=== PATIENT | male | born 1980 | race Caucasian/White ===

== ENCOUNTER 2021-04-12 13:13 | Inpatient (IN) | payer OTHER ==
[~2021-04-12] VITALS: Ht 167.6 cm; Wt 116.6 kg
[2021-04-12 13:36] VITALS: BP 155/110
--- NOTE | 2021-04-12 16:27 | NUR ---
PT TRANFERRED FROM ER WAITING ROOM TO ER RM 5 AT 1630 INTRODUCED SELF TO PT AT THAT TIME
[2021-04-12 17:16] LABS: ABSOLUTE MONOCYTES 0.6 thou/uL (0.0-1.2); ABSOLUTE NEUTROPHILS 3.5 thou/uL (1.6-8.1); BASOPHILS 0.4 %; EOSINOPHILS 0.1 %; HEMATOCRIT 44.2 % (42.0-52.0); HEMOGLOBIN 15.5 gm/dL (14.0-18.0); LYMPHOCYTES 19.6 %; MCH 31.6 pg (26.0-34.0); MCV 90.3 fL (80.0-100.0); MONOCYTES 12.2 %; MPV 8.4 fl. (7.2-11.1); NUCLEATED RBCS 0 /100WBC; PLATELET COUNT* 163 thou/uL (150-400); POLYS 67.7 %; RBC 4.89 mil/uL (4.50-6.00); RDW-CV 12.3 % (10.5-14.5); WBC 5.2 thou/uL (4.0-11.0)
[2021-04-12 17:25] LABS: CALCIUM 8.6 mg/dL (8.5-10.1); POTASSIUM 3.6 mmol/L (3.5-5.1)
[2021-04-12 17:29] LABS: APTT 31.6 Seconds (25.0-31.3); INR 1.1; PROTIME 11.2 Seconds (9.20-11.50)
[2021-04-12 17:30] LABS: ALBUMIN 3.6 g/dL (3.4-5.0); TOTAL BILIRUBIN 0.7 mg/dL (<0.1-1.0); TOTAL PROTEIN 7.9 g/dL (6.4-8.2)
[2021-04-12 23:00] VITALS: BP 122/79
[2021-04-13 03:32] VITALS: BP 111/74
[2021-04-13 03:53] LABS: ABSOLUTE MONOCYTES 0.6 thou/uL (0.0-1.2); ABSOLUTE NEUTROPHILS 2.1 thou/uL (1.6-8.1); BASOPHILS 0.3 %; LYMPHOCYTES 27.7 %; MCH 30.9 pg (26.0-34.0); MCHC 34.1 g/dL (28.0-37.0); MCV 90.6 fL (80.0-100.0); MONOCYTES 15.5 %; MPV 8.4 fl. (7.2-11.1); NUCLEATED RBCS 0 /100WBC; PLATELET COUNT* 159 thou/uL (150-400); POLYS 56.5 %; RBC 4.53 mil/uL (4.50-6.00); RDW-CV 12.2 % (10.5-14.5); WBC 3.6 thou/uL (4.0-11.0)
[2021-04-13 04:03] LABS: CALCIUM 8.2 mg/dL (8.5-10.1)
[2021-04-13 04:05] LABS: POTASSIUM 4.6 mmol/L (3.5-5.1)
[2021-04-13 07:32] VITALS: BP 115/74
[2021-04-13 12:04] VITALS: BP 136/81
[2021-04-13 15:27] VITALS: BP 196/109
[2021-04-13 16:00] VITALS: BP 133/85
--- NOTE | 2021-04-13 17:00 | NUR ---
PATIENT ARRIVED FROM ER. PATIENT SETTLED TO ROOM. HISTORY, ASSESSMENT AND VITALS COMPLETED AND DOCUMENTED. PATIENT IS ON 2L/NC. PATIENT IS UP AD SLIM. PATIENT DENIES ANY PAIN. PATIENT DENIES ANY NEEDS AT THIS TIME. CALL LIGHT WITHIN REACH.
[2021-04-13 20:00] VITALS: BP 106/78
[2021-04-14] VITALS (7 sets, daily range): BP systolic 119–155; BP diastolic 69–100
[2021-04-14 04:40] LABS: ABSOLUTE LYMPHOCYTES 1.4 thou/uL (0.8-5.3); ABSOLUTE MONOCYTES 0.8 thou/uL (0.0-1.2); ABSOLUTE NEUTROPHILS 3.5 thou/uL (1.6-8.1); BASOPHILS 0.1 %; EOSINOPHILS 0.1 %; HEMATOCRIT 37.5 % (42.0-52.0); HEMOGLOBIN 13.2 gm/dL (14.0-18.0); MCH 31.8 pg (26.0-34.0); MCHC 35.3 g/dL (28.0-37.0); MCV 90.2 fL (80.0-100.0); MONOCYTES 13.8 %; MPV 8.6 fl. (7.2-11.1); NUCLEATED RBCS 0 /100WBC; PLATELET COUNT* 182 thou/uL (150-400); RBC 4.16 mil/uL (4.50-6.00); WBC 5.7 thou/uL (4.0-11.0)
[2021-04-14 05:11] LABS: CREATININE 0.9 mg/dL (0.6-1.3); POTASSIUM 3.6 mmol/L (3.5-5.1); TOTAL BILIRUBIN 0.4 mg/dL (<0.1-1.0); TOTAL PROTEIN 6.6 g/dL (6.4-8.2)
--- NOTE | 2021-04-14 13:33 | NUR ---
Nutrition: Pt admitted to COVID unit with possible COVID. 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 Assessed for high BMI. Wt: 257#. Regular diet. No intake records. RD cannot visit with pt 1:1 d/t COVID restrictions. Meds: steroids, remdesivir, ABX. Consider low risk. Please record meal intake %. Supplements available if meal intake <50%.
--- NOTE | 2021-04-14 15:24 | NUR ---
Covid positive. Spoke with via phone. Pt independent. No DME. No hx of HH or SNF. Goal is home at dc. On 2L. Cxr not good. Plan to watch pt for a few more days, Pt is high risk to decline.
--- NOTE | 2021-04-14 18:48 | NUR ---
PATIENT RESTING IN BED. PATIENT IS UP AD SLIM IN ROOM. PATIENT DENIES ANY PAIN. PATIENT HAS OXYGEN ON AT 2L/NC WITH O2 SATS IN MID 90'S. PATIENT RECEIVING 1 UNIT OF CONVALESCENT PLASMA THIS EVENING. PATIENT HAS GOOD APPETITE. PATIENT DENIES ANY NEEDS AT THIS TIME. CALL LIGHT WITHIN REACH.
[2021-04-15] VITALS: BP 118/75
[2021-04-15 04:00] VITALS: BP 107/74
[2021-04-15 04:54] LABS: ABSOLUTE LYMPHOCYTES 1.5 thou/uL (0.8-5.3); ABSOLUTE MONOCYTES 0.8 thou/uL (0.0-1.2); ABSOLUTE NEUTROPHILS 4.6 thou/uL (1.6-8.1); BASOPHILS 0.1 %; EOSINOPHILS 0.2 %; HEMATOCRIT 40.9 % (42.0-52.0); HEMOGLOBIN 13.9 gm/dL (14.0-18.0); LYMPHOCYTES 22.2 %; MCV 91.2 fL (80.0-100.0); MONOCYTES 11.7 %; MPV 8.3 fl. (7.2-11.1); NUCLEATED RBCS 0 /100WBC; PLATELET COUNT* 229 thou/uL (150-400); POLYS 65.8 %; RBC 4.48 mil/uL (4.50-6.00); RDW-CV 12.3 % (10.5-14.5); WBC 6.9 thou/uL (4.0-11.0)
--- NOTE | 2021-04-15 05:00 | NUR ---
ASSUMED CARE OF PT AT 1900. PT IS ALERT AND ORIENTED. VSS. PERRLA. NO COMPLAINTS OF PAIN. PT IS ON 2 LITERS. PT IS IN SINUS RYTHM ON THE TELEMETRY. PT IS RESTING COMFORTABLY IN BED. RESPIRATIONS ARE EVEN AND NONLABORED. WILL CONTINUE TO MONITOR PT.
[2021-04-15 05:22] LABS: ALBUMIN 3.3 g/dL (3.4-5.0); CALCIUM 8.2 mg/dL (8.5-10.1); CREATININE 0.9 mg/dL (0.6-1.3); POTASSIUM 3.3 mmol/L (3.5-5.1); TOTAL BILIRUBIN 0.4 mg/dL (<0.1-1.0); TOTAL PROTEIN 7.2 g/dL (6.4-8.2)
[2021-04-15 09:05] VITALS: BP 153/100
[2021-04-15 12:00] VITALS: BP 145/90
--- NOTE | 2021-04-15 14:53 | NUR ---
Anticipate dc tomorrow. Pt on 2L, completed ex ox prior to dc
[2021-04-15 15:57] VITALS: BP 119/83
--- NOTE | 2021-04-15 17:25 | NUR ---
PATIENT RESTING IN BED. PATIENT IS UP AD SLIM IN ROOM. PATIENT DENIES ANY PAIN BUT STATES HIS HEAD HAS FELT WEIRD SINCE INSULIN GIVEN YESTERDAY. PATIENT HAS REFUSED INSULIN TODAY. PATIENT HAS GOOD APPETITE. PATIENT REMAINS ON 2L/NC. PATIENT DENIES ANY NEEDS AT THIS TIME. CALL LIGHT WITHIN REACH.
[2021-04-15 21:00] VITALS: BP 132/78
[2021-04-16 00:16] VITALS: BP 107/59
--- NOTE | 2021-04-16 00:59 | NUR ---
PT AO X4 WITH 2L NC SATTING APPROPRIATELY. IV MEDS ADMINISTERED PER MAR WITHOUT PROBLEM. PT LUNGS CTA/DIM WITH NON PRODUCTIVE COUGH. REQUESTED A FAN AND ONE WAS PROVIDED FOR COMFORT. PT UP AD SLIM, CALL LIGHT WITHIN REACH
[2021-04-16 04:37] VITALS: BP 130/79
[2021-04-16 08:40] VITALS: BP 147/91
[2021-04-16] MEDS ORDERED: PROTONIX40 M2 PO (13:00)
[2021-04-16] MEDS ORDERED: DOXYCYCLINE 10100 MG PO (13:00)
[2021-04-16] MEDS ORDERED: DEXAMETHASONE1 MG PO (13:00)
[2021-04-16] MEDS ORDERED: VENTOLIN HFA 1818 GM INH (13:00)
--- NOTE | 2021-04-16 15:05 | NUR ---
Pt medically stable to dc today. Ex ox completed, Pt needs 2L with activity. CM faxed referral to [facility], await decision to dispense oxygen tank to Pt
[2021-04-16 15:41] VITALS: BP 147/91
--- NOTE | 2021-04-16 17:45 | NUR ---
PT DC AT 1700 WITH HOME O2, WAS ESCORTED OUT BY STAFF IN A WC TO CAR DRIVEN BY HIS . IV REMOVED AND TELE MONITOR AND ALL BELONGINGS SENT HOME.
== END 2021-04-16 17:00 | disposition home or self-care (01) | DRG 871 ==
LOC: M.ERS 13:13 → M.TBA-ER 17:15 → M.ORTHSURG 17:15
PROVIDERS: Nurse Practitioner Psychiatric/Mental Health; ADMIT Internal Medicine; ATTEND Internal Medicine
PROC: XW033E5 Introduction of Remdesivir Anti-infective into Peripheral Vein, Percutaneous Approach, New Technology Group 5 (ICD-10-PCS; principal; 2021-04-12)
PROC: XW13325 Transfusion of Convalescent Plasma (Nonautologous) into Peripheral Vein, Percutaneous Approach, New Technology Group 5 (ICD-10-PCS; 2021-04-14)
DX: A41.89 Other specified sepsis (principal); J96.01 Acute respiratory failure with hypoxia; U07.1 COVID-19; J12.82 Pneumonia due to coronavirus disease 2019; E66.2 Morbid (severe) obesity with alveolar hypoventilation; Z68.41 Body mass index [BMI] 40.0-44.9, adult; F17.200 Nicotine dependence, unspecified, uncomplicated; Z72.89 Other problems related to lifestyle